=== PATIENT | female | born 1965 | race Caucasian/White ===

== ENCOUNTER → 2023-01-06 | Day surgery (SDC) | payer SELFPAY ==
[~2023-01-06] MED LIST: FENTANYL CITRATE/PF 100MCG/2 ML INJ ONE; LACTATED RINGER'S 1,000 ML ONE; MIDAZOLAM HCL 2 MG/2 ML VIAL ONE; MOXIFLOXACIN HCL(OPTH) 3 ML BTL ONE; ONDANSETRON HCL INJ 2MG/ML 2ML 2 MG/ML VIAL ONE; OR PHACO EYE KIT ONE; PHENYLEPHRINE HCL 10% 5 ML OPTH SOLN ONE; POVIDONE IODINE 0.05% 0.05 % ML PO ONE; TROPICAMIDE 1% OPTH SOLN 15 ML BTL ONE
[2023-01-06 13:45] VITALS: BP 103/70
== END | disposition home or self-care (01) ==
LOC: OR 11:27
PROVIDERS: ATTEND Ophthalmology
DX: H52.12 Myopia, left eye (principal); H52.4 Presbyopia
CPT/HCPCS: 66984; 81025; J2250; J2405; J3010; J7121; V2788

== ENCOUNTER → 2023-01-25 | Day surgery (SDC) | payer SELFPAY ==
[~2023-01-25] MED LIST changes: -ONDANSETRON HCL INJ 2MG/ML 2ML 2 MG/ML VIAL ONE; -POVIDONE IODINE 0.05% 0.05 % ML PO ONE; +PREOP PHACO EYE KIT ONE
[2023-01-25 09:05] VITALS: BP 117/80
== END | disposition home or self-care (01) ==
LOC: OR 06:05
PROVIDERS: ATTEND Ophthalmology
DX: H52.11 Myopia, right eye (principal); H52.201 Unspecified astigmatism, right eye
CPT/HCPCS: 66984; 81025; J2250; J3010; J7121; V2788